=== PATIENT | female | born 1970 | race Caucasian/White ===

== ENCOUNTER 2016-08-17 15:52 | Emergency (ER) | payer OTHER ==
[~2016-08-17] VITALS: Ht 162.6 cm; Wt 78.0 kg
[~2016-08-17 15:52] MED LIST: NORCO 325-5 MG1 TAB PO; PRILOSEC20 MG PO; SUDOGEST30 MG PO; TINAZIDINE PO; UROCIT-K15 MEQ PO
== END 2016-08-17 18:22 | disposition short-term general hospital (02) ==
LOC: ER 15:52
DX: H65.92 Unspecified nonsuppurative otitis media, left ear (principal); R11.0 Nausea; F17.210 Nicotine dependence, cigarettes, uncomplicated; Z79.899 Other long term (current) drug therapy